=== PATIENT | male | born 1975 | race Caucasian/White ===

== ENCOUNTER → 2024-03-21 13:05 | Outpatient (REF) | payer OTHER, SELFPAY | LOC: HWRAD 13:05 | PROVIDERS: ATTENDING PHYSICIAN Specialist; FAMILY PHYSICIAN Family Medicine | DX: R35.0 Frequency of micturition (principal) | CPT/HCPCS: 74176 ==

== ENCOUNTER → 2025-04-15 18:55 | Outpatient (REF) | payer OTHER, SELFPAY | LOC: MRI 18:55 | PROVIDERS: ATTENDING PHYSICIAN Family Medicine | DX: R29.898 Other symptoms and signs involving the musculoskeletal system (principal); M54.12 Radiculopathy, cervical region; R93.7 Abnormal findings on diagnostic imaging of other parts of musculoskeletal system; M50.90 Cervical disc disorder, unspecified, unspecified cervical region | CPT/HCPCS: 72141 ==